=== PATIENT | female | born 1985 | race African-American/Black ===

== ENCOUNTER 2020-04-01 12:56 | Emergency (ER) | payer MEDICAID ==
[~2020-04-01] VITALS: Ht 165.1 cm; Wt 63.5 kg
[2020-04-01] MEDS ORDERED: KETOROLAC 30MG/ML VIAL IV STA (13:30)
[2020-04-01 14:29] LABS: BASOPHILS % 0.5 % (0.0-2.0); EOSINOPHILS % 0.4 % (0.0-5.0); HEMATOCRIT. 37.4 % (36.0-48.0); HEMOGLOBIN. 12.8 g/dL (12.0-16.0); LYMPHOCYTES % 21.6 % (20.0-50.0); MEAN CORPUSCULAR HEMOGLOBIN 30.2 pg (28.0-32.0); MEAN CORPUSCULAR VOLUME 88.5 fL (81.0-99.0); MEAN PLATELET VOLUME 7.7 fl (7.4-10.4); MONOCYTES % 8.7 % (2.0-8.0); NEUTROPHILS % 68.8 % (40.0-76.0); PLATELET 270 x1000/uL (130-400); RED BLOOD CELL COUNT 4.23 mill/uL (4.2-5.4); RED CELL DISTRIBUTION WIDTH 15.5 % (11.6-14.6)
[2020-04-01 14:35] LABS: CHLORIDE 104 mEq/L (98-107)
[2020-04-01 14:37] LABS: HCG SCREEN NEGATIVE
[2020-04-01 20:00] VITALS: BP 18/74
[2020-04-01] MEDS ORDERED: IOHEXOL-350 100 ML BOTTLE ONE (22:57)
== END 2020-04-01 20:37 | disposition home or self-care (01) ==
LOC: ER 12:56
DX: R07.89 Other chest pain (principal); F15.129 Other stimulant abuse with intoxication, unspecified; R00.0 Tachycardia, unspecified; Z98.890 Other specified postprocedural states
CPT/HCPCS: 36415; 71045; 71275; 80053; 83880; 84484; 84703; 85025; 85379; 93005; 96374; 99285; J1885; Q9967

== ENCOUNTER 2020-04-12 18:20 | Emergency (ER) | payer MEDICAID ==
[~2020-04-12] VITALS: Ht 165.1 cm; Wt 60.0 kg
[2020-04-12 18:32] VITALS: BP 136/83
[2020-04-12] MEDS ORDERED: NAPROXEN 250MG TABLET PO ONE (19:15)
== END 2020-04-12 20:15 | disposition left against medical advice (07) ==
LOC: ER 18:20
DX: S92.591A Other fracture of right lesser toe(s), initial encounter for closed fracture (principal); W50.1XXA Accidental kick by another person, initial encounter; Y93.89 Activity, other specified; Y92.89 Other specified places as the place of occurrence of the external cause; Y99.8 Other external cause status; F31.9 Bipolar disorder, unspecified; F20.9 Schizophrenia, unspecified; F15.10 Other stimulant abuse, uncomplicated
CPT/HCPCS: 73630; 99283

== ENCOUNTER 2020-04-27 19:43 | Emergency (ER) | payer MEDICAID ==
[~2020-04-27] VITALS: Ht 170.2 cm; Wt 64.0 kg
[2020-04-27 23:50] LABS: BASOPHILS % 0.8 % (0.0-2.0); EOSINOPHILS % 0.8 % (0.0-5.0); HEMATOCRIT. 39.7 % (36.0-48.0); HEMOGLOBIN. 13.6 g/dL (12.0-16.0); LYMPHOCYTES % 39.1 % (20.0-50.0); MEAN CORPUSCULAR HEMOGLOBIN 29.8 pg (28.0-32.0); MEAN CORPUSCULAR VOLUME 87.2 fL (81.0-99.0); MEAN PLATELET VOLUME 7.5 fl (7.4-10.4); MONOCYTES % 10.1 % (2.0-8.0); NEUTROPHILS % 49.2 % (40.0-76.0); PLATELET 242 x1000/uL (130-400); RED BLOOD CELL COUNT 4.55 mill/uL (4.2-5.4); RED CELL DISTRIBUTION WIDTH 15.7 % (11.6-14.6)
[2020-04-27 23:55] LABS: CHLORIDE 108 mEq/L (98-107)
[2020-04-27 23:59] LABS: ETHANOL BLOOD 19 mg/dL
[2020-04-28 00:15] LABS: CLARITY URINE CLOUDY (CLEAR); COLOR URINE YELLOW (YELLOW); KETONES URINE TRACE (NEGATIVE); LEUKOCYTE ESTERASE URINE NEGATIVE (NEGATIVE); NITRITE URINE NEGATIVE (NEGATIVE); OCCULT BLOOD URINE NEGATIVE (NEGATIVE); PROTEIN URINE 2+ (NEGATIVE); SPECIFIC GRAVITY URINE 1.026 (1.005-1.030)
[2020-04-28 00:25] LABS: *BARBITURATES SCREEN URINE NEGATIVE (NEGATIVE)
[2020-04-28 00:26] LABS: *BENZODIAZEPINES SCREEN URINE NEGATIVE (NEGATIVE); *COCAINE SCREEN URINE NEGATIVE (NEGATIVE); CANNABINOID URINE SCREEN NEGATIVE (NEGATIVE); METHADONE URINE SCREEN NEGATIVE (NEGATIVE); OPIATES URINE SCREEN NEGATIVE (NEGATIVE)
[2020-04-28 00:32] LABS: *AMPHETAMINES SCREEN URINE PRESUMTIVE POSITIVE (NEGATIVE); PHENCYCLIDINE URINE SCREEN PRESUMTIVE POSITIVE (NEGATIVE)
[2020-04-28] MEDS ORDERED: ZIPRASIDONE MESYLATE 20MG/VIAL IM ONE (01:00)
[2020-04-28] MEDS ORDERED: HALOPERIDOL LACTATE 5MG/ML VIAL IM ONE ×2 (17:14→17:30)
[2020-04-28] MEDS ORDERED: LORAZEPAM 2MG/ML CPJ IM ONE (17:15)
[2020-04-28] MEDS ORDERED: DIPHENHYDRAMINE 50MG/ML VIAL IM ONE (17:15)
[2020-04-29 08:55] VITALS: BP 98/65
== END 2020-04-29 09:00 | disposition home or self-care (01) ==
LOC: ER 19:48
DX: R45.851 Suicidal ideations (principal); R45.850 Homicidal ideations; F29 Unspecified psychosis not due to a substance or known physiological condition; F19.10 Other psychoactive substance abuse, uncomplicated; R45.6 Violent behavior; F31.9 Bipolar disorder, unspecified; F20.9 Schizophrenia, unspecified; F15.10 Other stimulant abuse, uncomplicated
CPT/HCPCS: 36415; 80053; 80305; 80307; 80320; 80329; 81003; 81025; 85025; 96372; 99285; G0480

== ENCOUNTER 2020-05-06 14:27 | Emergency (ER) | payer MEDICAID ==
[~2020-05-06] VITALS: Ht 162.6 cm; Wt 61.0 kg
[2020-05-06 14:35] VITALS: BP 102/57
== END 2020-05-06 14:51 | disposition left against medical advice (07) ==
LOC: ER 14:27
DX: F31.9 Bipolar disorder, unspecified (principal); F20.9 Schizophrenia, unspecified; Z53.21 Procedure and treatment not carried out due to patient leaving prior to being seen by health care provider

== ENCOUNTER 2021-06-07 02:58 | Emergency (ER) | payer SELFPAY ==
[~2021-06-07] VITALS: Ht 160 cm; Wt 65.0 kg
[2021-06-07 03:07] VITALS: BP 139/95
== END 2021-06-07 08:00 | disposition left against medical advice (07) ==
LOC: ER 02:58
DX: Z76.0 Encounter for issue of repeat prescription (principal); Z53.21 Procedure and treatment not carried out due to patient leaving prior to being seen by health care provider

== ENCOUNTER 2021-06-08 01:22 | Emergency (ER) | payer MEDICAID ==
[~2021-06-08] VITALS: Ht 165.1 cm; Wt 64.0 kg
[2021-06-08 01:26] VITALS: BP 122/73
== END 2021-06-08 02:52 | disposition home or self-care (01) ==
LOC: ER 01:22
DX: F41.9 Anxiety disorder, unspecified (principal); J45.909 Unspecified asthma, uncomplicated; F20.9 Schizophrenia, unspecified; F15.10 Other stimulant abuse, uncomplicated; F16.10 Hallucinogen abuse, uncomplicated; F17.200 Nicotine dependence, unspecified, uncomplicated
CPT/HCPCS: 99283

== ENCOUNTER 2021-06-10 02:19 | Emergency (ER) | payer MEDICAID ==
[~2021-06-10] VITALS: Ht 167.6 cm; Wt 73.0 kg
[2021-06-10 05:25] VITALS: BP 122/74
[2021-06-10] MEDS ORDERED: IBUPROFEN 600MG TABLET PO ONE (05:30)
== END 2021-06-10 05:35 | disposition left against medical advice (07) ==
LOC: ER 02:19
DX: M25.531 Pain in right wrist (principal); F20.9 Schizophrenia, unspecified; F31.9 Bipolar disorder, unspecified; F15.10 Other stimulant abuse, uncomplicated; F16.10 Hallucinogen abuse, uncomplicated; Z87.828 Personal history of other (healed) physical injury and trauma
CPT/HCPCS: 99283

== ENCOUNTER 2021-06-11 16:33 | Emergency (ER) | payer MEDICAID ==
[~2021-06-11] VITALS: Ht 162.6 cm; Wt 73.0 kg
[2021-06-11 20:29] LABS: BASOPHILS % 0.5 % (0.0-2.0); EOSINOPHILS % 1.1 % (0.0-5.0); HEMATOCRIT. 36.9 % (36.0-48.0); HEMOGLOBIN. 12.4 g/dL (12.0-16.0); LYMPHOCYTES % 31.8 % (20.0-50.0); MEAN CORPUSCULAR HEMOGLOBIN 29.8 pg (28.0-32.0); MEAN CORPUSCULAR VOLUME 88.6 fL (81.0-99.0); MEAN PLATELET VOLUME 7.4 fl (7.4-10.4); MONOCYTES % 10.6 % (2.0-8.0); PLATELET 257 x1000/uL (130-400); RED BLOOD CELL COUNT 4.16 mill/uL (4.2-5.4); RED CELL DISTRIBUTION WIDTH 16.9 % (11.6-14.6)
[2021-06-11 20:35] LABS: CHLORIDE 110 mEq/L (98-107)
[2021-06-11 20:39] LABS: ETHANOL BLOOD < 10 mg/dL
[2021-06-11] MEDS ORDERED: ACETAMINOPHEN 650MG/20.3ML UDC PO ONE (22:15)
[2021-06-11 23:00] LABS: CLARITY URINE CLOUDY (CLEAR); COLOR URINE YELLOW (YELLOW); KETONES URINE TRACE (NEGATIVE); LEUKOCYTE ESTERASE URINE NEGATIVE (NEGATIVE); NITRITE URINE NEGATIVE (NEGATIVE); OCCULT BLOOD URINE NEGATIVE (NEGATIVE); PROTEIN URINE TRACE (NEGATIVE); SPECIFIC GRAVITY URINE 1.043 (1.005-1.030)
[2021-06-11 23:09] LABS: *BARBITURATES SCREEN URINE NEGATIVE (NEGATIVE); *BENZODIAZEPINES SCREEN URINE NEGATIVE (NEGATIVE)
[2021-06-11 23:10] LABS: METHADONE URINE SCREEN NEGATIVE (NEGATIVE); OPIATES URINE SCREEN NEGATIVE (NEGATIVE)
[2021-06-11 23:11] LABS: CANNABINOID URINE SCREEN NEGATIVE (NEGATIVE)
[2021-06-11 23:14] LABS: *AMPHETAMINES SCREEN URINE PRESUMTIVE POSITIVE (NEGATIVE); *COCAINE SCREEN URINE PRESUMTIVE POSITIVE (NEGATIVE); PHENCYCLIDINE URINE SCREEN PRESUMTIVE POSITIVE (NEGATIVE)
[2021-06-12] MEDS ORDERED: QUETIAPINE FUMARATE 50MG TABLET PO STA (08:16)
[2021-06-12] MEDS: QUETIAPINE FUMARATE 50MG TABLET PO SCH (09:00)
[2021-06-12] MEDS ORDERED: IBUPROFEN 600MG TABLET PO ONE (10:45)
[2021-06-12] MEDS ORDERED: LORAZEPAM 2MG/ML CPJ IM ONE (18:15)
[2021-06-13] MEDS: QUETIAPINE FUMARATE 50MG TABLET PO SCH ×2 (02:28→15:53)
[2021-06-13] MEDS ORDERED: ACETAMINOPHEN 325MG TABLET PO ONE (02:45)
[2021-06-13] MEDS ORDERED: LORAZEPAM 1MG TABLET PO SCH (05:00)
[2021-06-13] MEDS ORDERED: ZIPRASIDONE MESYLATE 20MG/VIAL IM ONE (05:30)
[2021-06-13] MEDS ORDERED: OLANZAPINE 10 MG/VIAL IM ONE ×2 (06:00→15:00)
[2021-06-13] MEDS ORDERED: OLANZAPINE 5MG TABLET ODT PO ONE (20:15)
[2021-06-13] MEDS ORDERED: HALOPERIDOL LACTATE 5MG/ML VIAL IM STA (23:41)
[2021-06-13] MEDS ORDERED: DIPHENHYDRAMINE 50MG/ML VIAL IM STA (23:41)
[2021-06-14] MEDS: QUETIAPINE FUMARATE 50MG TABLET PO SCH (04:12)
[2021-06-14 04:23] VITALS: BP 98/59
== END 2021-06-14 04:43 ==
LOC: ER 16:33
DX: F23 Brief psychotic disorder (principal); F15.10 Other stimulant abuse, uncomplicated; F31.9 Bipolar disorder, unspecified; F14.10 Cocaine abuse, uncomplicated; R45.851 Suicidal ideations; F16.10 Hallucinogen abuse, uncomplicated; F17.210 Nicotine dependence, cigarettes, uncomplicated; Z20.822 Contact with and (suspected) exposure to COVID-19; Z75.1 Person awaiting admission to adequate facility elsewhere; Z59.0 Homelessness
CPT/HCPCS: 29125; 36415; 73110; 80053; 80305; 80307; 80320; 80329; 81003; 81025; 85025; 96372; 99285; C9803; J1200; J1630; J2060; J3486; J3490; U0003; U0005; Z7610; G0480

== ENCOUNTER 2021-07-10 11:59 | Emergency (ER) | payer MEDICAID ==
[~2021-07-10] VITALS: Ht 160 cm; Wt 80.0 kg
[2021-07-10] MEDS ORDERED: SODIUM CHLORIDE 0.9% 1,000 ML IV ONE (13:15)
[2021-07-10 14:40] LABS: *BARBITURATES SCREEN URINE NEGATIVE (NEGATIVE); *BENZODIAZEPINES SCREEN URINE NEGATIVE (NEGATIVE); *COCAINE SCREEN URINE NEGATIVE (NEGATIVE); METHADONE URINE SCREEN NEGATIVE (NEGATIVE); OPIATES URINE SCREEN NEGATIVE (NEGATIVE)
[2021-07-10 14:41] LABS: CANNABINOID URINE SCREEN NEGATIVE (NEGATIVE)
[2021-07-10 14:50] LABS: BASOPHILS % 0.3 % (0.0-2.0); EOSINOPHILS % 0.9 % (0.0-5.0); HEMATOCRIT. 38.9 % (36.0-48.0); HEMOGLOBIN. 13.1 g/dL (12.0-16.0); LYMPHOCYTES % 26.6 % (20.0-50.0); MEAN PLATELET VOLUME 7.9 fl (7.4-10.4); MONOCYTES % 11.8 % (2.0-8.0); NEUTROPHILS % 60.4 % (40.0-76.0); PLATELET 189 x1000/uL (130-400); RED BLOOD CELL COUNT 4.37 mill/uL (4.2-5.4); RED CELL DISTRIBUTION WIDTH 15.4 % (11.6-14.6)
[2021-07-10 14:51] LABS: CHLORIDE 106 mEq/L (98-107)
[2021-07-10 14:53] LABS: *AMPHETAMINES SCREEN URINE PRESUMTIVE POSITIVE (NEGATIVE); PHENCYCLIDINE URINE SCREEN PRESUMTIVE POSITIVE (NEGATIVE)
[2021-07-10 14:55] LABS: ETHANOL BLOOD < 10 mg/dL
[2021-07-10 15:07] LABS: HCG SCREEN POSITIVE
[2021-07-10] MEDS ORDERED: PREN-55 MT (15:20)
[2021-07-10 16:00] VITALS: BP 117/53
== END 2021-07-10 16:37 | disposition home or self-care (01) ==
LOC: ER 11:59
DX: M25.531 Pain in right wrist (principal); F14.10 Cocaine abuse, uncomplicated; F12.10 Cannabis abuse, uncomplicated; F15.10 Other stimulant abuse, uncomplicated; F16.10 Hallucinogen abuse, uncomplicated; Z86.59 Personal history of other mental and behavioral disorders
CPT/HCPCS: 29125; 36415; 73080; 73110; 80053; 80305; 80307; 80320; 80329; 81025; 83690; 83880; 84484; 84703; 85025; 93005; 99285; J7030; G0480

== ENCOUNTER 2021-07-15 03:05 | Emergency (ER) | payer MEDICAID ==
[~2021-07-15] VITALS: Ht 167.6 cm; Wt 68.0 kg
[~2021-07-15 03:05] MED LIST: PREN-55 MT
[2021-07-15 03:45] LABS: CHLORIDE 105 mEq/L (98-107)
[2021-07-15 03:49] LABS: BASOPHILS % 0.3 % (0.0-2.0); EOSINOPHILS % 0.3 % (0.0-5.0); ETHANOL BLOOD < 10 mg/dL; HEMATOCRIT. 37.2 % (36.0-48.0); HEMOGLOBIN. 12.7 g/dL (12.0-16.0); LYMPHOCYTES % 19.5 % (20.0-50.0); MEAN CORPUSCULAR HEMOGLOBIN 29.5 pg (28.0-32.0); MEAN CORPUSCULAR VOLUME 86.1 fL (81.0-99.0); MEAN PLATELET VOLUME 7.9 fl (7.4-10.4); MONOCYTES % 9.3 % (2.0-8.0); NEUTROPHILS % 70.6 % (40.0-76.0); PLATELET 207 x1000/uL (130-400); RED BLOOD CELL COUNT 4.32 mill/uL (4.2-5.4); RED CELL DISTRIBUTION WIDTH 15.2 % (11.6-14.6)
[2021-07-15 03:49] LABS: CLARITY URINE CLEAR (CLEAR); COLOR URINE YELLOW (YELLOW); KETONES URINE TRACE (NEGATIVE); LEUKOCYTE ESTERASE URINE NEGATIVE (NEGATIVE); NITRITE URINE NEGATIVE (NEGATIVE); OCCULT BLOOD URINE NEGATIVE (NEGATIVE); PROTEIN URINE TRACE (NEGATIVE)
[2021-07-15 04:00] LABS: *BARBITURATES SCREEN URINE NEGATIVE (NEGATIVE); *BENZODIAZEPINES SCREEN URINE NEGATIVE (NEGATIVE); *COCAINE SCREEN URINE NEGATIVE (NEGATIVE)
[2021-07-15 04:01] LABS: CANNABINOID URINE SCREEN NEGATIVE (NEGATIVE); METHADONE URINE SCREEN NEGATIVE (NEGATIVE); OPIATES URINE SCREEN NEGATIVE (NEGATIVE)
[2021-07-15 04:09] LABS: B-HCG QUANTITATIVE 76837 mIU/mL (<3)
[2021-07-15 04:13] LABS: *AMPHETAMINES SCREEN URINE PRESUMTIVE POSITIVE (NEGATIVE); PHENCYCLIDINE URINE SCREEN PRESUMTIVE POSITIVE (NEGATIVE)
[2021-07-15 05:00] VITALS: BP 132/81
== END 2021-07-15 07:28 | disposition home or self-care (01) ==
LOC: ER 03:05
DX: O26.891 Other specified pregnancy related conditions, first trimester (principal); O99.321 Drug use complicating pregnancy, first trimester; R45.851 Suicidal ideations; F20.9 Schizophrenia, unspecified; F31.9 Bipolar disorder, unspecified; F15.90 Other stimulant use, unspecified, uncomplicated; Z3A.10 10 weeks gestation of pregnancy
CPT/HCPCS: 36415; 76801; 80053; 80305; 80307; 80320; 80329; 81003; 81025; 82140; 82962; 84443; 84702; 85025; 99284; G0480

== ENCOUNTER 2021-08-31 15:22 | Emergency (ER) | payer MEDICAID ==
[~2021-08-31] VITALS: Ht 167.6 cm; Wt 73.0 kg
[2021-08-31] MEDS ORDERED: ACETAMINOPHEN 325MG TABLET PO STA (16:12)
[2021-08-31] MEDS ORDERED: SODIUM CHLORIDE 0.9% 1,000 ML IV ONE (16:15)
[2021-08-31 16:50] LABS: BASOPHILS % 0.5 % (0.0-2.0); EOSINOPHILS % 0.8 % (0.0-5.0); HEMATOCRIT. 32.4 % (36.0-48.0); HEMOGLOBIN. 10.7 g/dL (12.0-16.0); LYMPHOCYTES % 17.6 % (20.0-50.0); MEAN CORPUSCULAR HEMOGLOBIN 29.1 pg (28.0-32.0); MEAN CORPUSCULAR VOLUME 88.6 fL (81.0-99.0); MEAN PLATELET VOLUME 8.3 fl (7.4-10.4); MONOCYTES % 8.5 % (2.0-8.0); NEUTROPHILS % 72.6 % (40.0-76.0); PLATELET 234 x1000/uL (130-400); RED BLOOD CELL COUNT 3.66 mill/uL (4.2-5.4); RED CELL DISTRIBUTION WIDTH 14.8 % (11.6-14.6)
[2021-08-31 16:51] LABS: CLARITY URINE CLEAR (CLEAR); COLOR URINE YELLOW (YELLOW); KETONES URINE NEGATIVE (NEGATIVE); LEUKOCYTE ESTERASE URINE NEGATIVE (NEGATIVE); NITRITE URINE NEGATIVE (NEGATIVE); OCCULT BLOOD URINE NEGATIVE (NEGATIVE); PH URINE 6.5 (4.5-8.0); PROTEIN URINE NEGATIVE (NEGATIVE); SPECIFIC GRAVITY URINE 1.016 (1.005-1.030)
[2021-08-31 16:55] LABS: CHLORIDE 109 mEq/L (98-107)
[2021-08-31 17:01] LABS: HCG SCREEN POSITIVE
[2021-08-31 17:03] LABS: *BARBITURATES SCREEN URINE NEGATIVE (NEGATIVE)
[2021-08-31 17:04] LABS: *BENZODIAZEPINES SCREEN URINE NEGATIVE (NEGATIVE); *COCAINE SCREEN URINE NEGATIVE (NEGATIVE); METHADONE URINE SCREEN NEGATIVE (NEGATIVE); OPIATES URINE SCREEN NEGATIVE (NEGATIVE)
[2021-08-31 17:05] LABS: CANNABINOID URINE SCREEN NEGATIVE (NEGATIVE)
[2021-08-31 17:07] LABS: *AMPHETAMINES SCREEN URINE PRESUMTIVE POSITIVE (NEGATIVE); PHENCYCLIDINE URINE SCREEN PRESUMTIVE POSITIVE (NEGATIVE)
[2021-08-31 17:18] LABS: B-HCG QUANTITATIVE 34951 mIU/mL (<3)
[2021-08-31] MEDS ORDERED: PREN1TAB45 MT (19:42)
[2021-08-31] MEDS ORDERED: AZITHROMYCIN 500 MG TABLET PO NR (20:00)
[2021-08-31] MEDS ORDERED: CEFTRIAXONE SODIUM 500 MG/VIAL IM NR (20:00)
[2021-08-31 20:04] VITALS: BP 128/87
[2021-09-04 04:10] LABS: NEISSERIA GONORRHOEAE NAA Negative (Negative)
== END 2021-08-31 20:06 | disposition home or self-care (01) ==
LOC: ER 15:22
DX: O20.0 Threatened abortion (principal); T43.621A Poisoning by amphetamines, accidental (unintentional), initial encounter; R06.02 Shortness of breath; R05.9 Cough, unspecified; R00.0 Tachycardia, unspecified; O99.322 Drug use complicating pregnancy, second trimester; F15.10 Other stimulant abuse, uncomplicated; F14.10 Cocaine abuse, uncomplicated; F16.10 Hallucinogen abuse, uncomplicated; F12.10 Cannabis abuse, uncomplicated; O99.012 Anemia complicating pregnancy, second trimester; N89.8 Other specified noninflammatory disorders of vagina; Z3A.15 15 weeks gestation of pregnancy; Y92.89 Other specified places as the place of occurrence of the external cause; O09.522 Supervision of elderly multigravida, second trimester; Z87.01 Personal history of pneumonia (recurrent); Z86.19 Personal history of other infectious and parasitic diseases; Z86.59 Personal history of other mental and behavioral disorders; Z71.51 Drug abuse counseling and surveillance of drug abuser
CPT/HCPCS: 36415; 71045; 76830; 76856; 80053; 80305; 81003; 81025; 84702; 84703; 85025; 86592; 87491; 87591; 99285; J7030

== ENCOUNTER 2021-09-04 08:58 | Emergency (ER) | payer MEDICAID ==
[~2021-09-04] VITALS: Ht 167.6 cm; Wt 75.0 kg
[~2021-09-04 08:58] MED LIST changes: +PREN1TAB45 MT
[2021-09-04 09:15] VITALS: BP 112/73
[2021-09-04] MEDS ORDERED: ACETAMINOPHEN 500MG TABLET PO ONE (10:15)
[2021-09-04 11:02] LABS: CLARITY URINE TURBID (CLEAR); COLOR URINE YELLOW (YELLOW); KETONES URINE NEGATIVE (NEGATIVE); LEUKOCYTE ESTERASE URINE 3+ (NEGATIVE); NITRITE URINE NEGATIVE (NEGATIVE); OCCULT BLOOD URINE NEGATIVE (NEGATIVE); PROTEIN URINE NEGATIVE (NEGATIVE); SPECIFIC GRAVITY URINE 1.009 (1.005-1.030)
== END 2021-09-04 11:48 | disposition home or self-care (01) ==
LOC: ER 08:58
DX: O98.312 Other infections with a predominantly sexual mode of transmission complicating pregnancy, second trimester (principal); A56.01 Chlamydial cystitis and urethritis; F14.10 Cocaine abuse, uncomplicated; F15.10 Other stimulant abuse, uncomplicated; Z3A.15 15 weeks gestation of pregnancy
CPT/HCPCS: 81003; 99283